=== PATIENT | male | born 1935 | race Caucasian/White ===

== ENCOUNTER 2019-09-25 09:26 | Emergency (ER) | payer OTHER ==
[~2019-09-25] VITALS: Ht 167.6 cm; Wt 86.4 kg
[2019-09-25 09:26] VITALS: Ht 167.6 cm; Wt 86.4 kg
[2019-09-25 10:04] LABS: BASOPHILS 0.9 % (0-2); EOSINOPHILS 1.5 % (0-7); HEMATOCRIT 38.9 % (42.0-54.0); HEMOGLOBIN 12.8 g/dL (13.5-17.5); IMMATURE GRANULOCYTES 0.1 % (0-5); MCH 31.8 pg (26.0-34.0); MCHC 32.9 g/dL (31.0-37.0); MCV 96.5 fL (80.0-100.0); MEAN PLATELET VOLUME 9.6 fL (7.4-10.4); NEUTROPHILS 72.5 % (40-80); PLATELET COUNT 226 10x3/uL (130-400); RBC 4.03 10x6/uL (4.20-6.10); RDW 13.3 % (11.5-14.5); WBC 8.7 10x3/uL (4.8-10.8)
[2019-09-25 10:11] LABS: CALC OSMOLALITY 283 mosm/kg (275-300); CALCIUM 8.8 mg/dL (8.5-10.1); CARBON DIOXIDE 25.3 mmol/L (21.0-32.0); CHLORIDE - SERUM 107 mmol/L (98-107); CREATININE - SERUM 1.3 mg/dL (0.6-1.3); GLUCOSE 109 mg/dL (74-106); POTASSIUM - SERUM 4.2 mmol/L (3.5-5.1); SODIUM 139 mmol/L (136-145); UREA NITROGEN 27 mg/dL (7-18); eGFR NON AFRICAN AMERICAN 55 mL/min (90-120)
[2019-09-25 10:22] LABS: APTT 22.5 SECONDS (22.8-39.4); INR 1.07 (0.85-1.17); PROTIME 13.8 SECONDS (11.6-15.0)
[2019-09-25 10:24] LABS: D-DIMER-QUANTITATIVE 3.18 ug/mLFEU (0.20-0.54)
[2019-09-25 10:27] LABS: ALBUMIN 3.5 g/dL (3.4-5.0); ALKALINE PHOSPHATASE 42 U/L (30-120); ALT (SGPT) 18 U/L (10-68); BILIRUBIN - TOTAL 0.51 mg/dL (0.2-1.3); CKMB 1.3 U/L (0.0-3.6); CREATINE KINASE 75 UL (21-232); MAGNESIUM - SERUM 1.4 mg/dL (1.8-2.4); PRO BNP 2329 pg/mL (0-450); PROTEIN - SERUM 6.8 g/dL (6.4-8.2)
[2019-09-25 10:28] LABS: TROPONIN-I < 0.017 ng/mL (0.000-0.060)
[2019-09-25 14:20] VITALS: BP 147/70
== END 2019-09-25 14:20 | disposition other institution (70) ==
LOC: D.ER 09:26
PROVIDERS: Family Medicine
DX: R07.9 Chest pain, unspecified (principal); I26.99 Other pulmonary embolism without acute cor pulmonale; R06.02 Shortness of breath; R79.89 Other specified abnormal findings of blood chemistry; E07.9 Disorder of thyroid, unspecified; I10 Essential (primary) hypertension; K21.9 Gastro-esophageal reflux disease without esophagitis